=== PATIENT | male | born 1965 | race Hispanic/Latino ===

== ENCOUNTER 2016-08-22 02:07 | Inpatient (IN) | payer MEDICAID ==
--- NOTE | 2016-08-22 02:28 | C.PDOC ---
History Of Present Illness 50 y/o male presents to ED via transfer from [facility] for psych admission. Patient accepted for admission by Dr. Hoyos. Denies any acute complaints on arrival. Chief Complaint (Nursing): Medical Clearance History Per: Patient History/Exam Limitations: no limitations Current Symptoms Are (Timing): Still Present Reports Recently: Treated By A Physician Recent travel outside of the [place]: No Past Medical History Reviewed: Historical Data, Nursing Documentation, Vital Signs Vital Signs: Last Vital Signs Temp 97.7 F 08/22/16 02:12 Pulse 57 L 08/22/16 02:12 Resp 16 08/22/16 02:12 BP 145/91 H 08/22/16 02:12 Pulse Ox 98 08/22/16 02:12 - Medical History PMH: Depression Family History: States: Unknown Family Hx Review Of Systems Except As Marked, All Systems Reviewed And Found Negative. Constitutional: Negative for: Fever, Chills Respiratory: Negative for: Cough, Shortness of Breath Gastrointestinal: Negative for: Vomiting Skin: Positive for: Other (healing scar right sided scalp). Negative for: Rash Neurological: Negative for: Headache, Dizziness Psych: Positive for: Depression Physical Exam - Physical Exam Appears: Non-toxic, No Acute Distress, Other (awake, alert, no acute distress) Skin: Normal Color, Warm, Dry Head: Normacephalic, Other (presence of operative scar right side of the head) Eye(s): bilateral: Normal Inspection, PERRL, EOMI Chest: Symmetrical Cardiovascular: Rhythm Regular, No Murmur Respiratory: Normal Breath Sounds, No Rales, No Rhonchi, No Wheezing Gastrointestinal/Abdominal: Soft, No Tenderness Back: Normal Inspection Extremity: Normal ROM, Capillary Refill (< 2 sec. ) Neurological/Psych: Oriented x3, Other (no focal deficits) Disposition Discussed With : Marguerite Hoyos Doctor Will See Patient In The: Hospital Counseled Patient/Family Regarding: Diagnosis - Disposition Disposition: HOSPITALIZED Disposition Time: 02:33 Condition: STABLE Instructions: Gastritis (ED) - Clinical Impression Clinical Impression: Major depressive disorder, Alcohol use disorder - Scribe Statement The provider has reviewed the documentation as recorded by the Kvng Arevalo Provider Attestation: Provider Scribe Attestation: All medical record entries made by the Natalieibmayra were at my direction and personally dictated by me. I have reviewed the chart and agree that the record accurately reflects my personal performance of the history, physical exam, medical decision making, and the department course for this patient. I have also personally directed, reviewed, and agree with the discharge instructions and disposition.
[2016-08-22 02:38] VITALS: O2SAT 98
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
[2016-08-22] MEDS: Aritificial Tears (15ml) OU PRN (18:28)
--- NOTE | 2016-08-23 09:46 | PCM.PYCHPN ---
Psychiatric Progress Note - Psychiatric Progress Note Patient seen today, length of contact: 15 min Patient Chief Complaint: I am depressed and suicidal Problems Identified/Issues Discussed: Patient seen and evaluated, chart reviewed and discussed with the nurse. Patient still reports depressed mood and remained isolated, withdrawn and confined. He denies any withdrawal symptoms, but c/o anxiety and irritability. He denies any auditory or visual hallucinations. He is taking medications and denies any side effects. Supportive therapy and psychoeducation were given. Medication Change: Yes (Increase zoloft) Medical Record Reviewed: Yes Mental Status Examination - Cognitive Function Orientation: Person, Place, Situation, Time Memory: Intact Attention: WNL Concentration: Poor Association: WNL Fund of Knowledge: Poor - Mood Mood: Depressed, Anxious - Affect Affect: Constricted, Depressed - Formal Thought Process Formal Thought Process: No Impairment - Suicidal Ideation Suicidal Ideation: No - Homicidal Ideation Homicidal Ideation: No Goal/Treatment Plan - Goal/Treatment Plan Need for Continued Stay: Discharge may exacerbated symptoms, Severe functional impairment Progress Toward Problem(s) and Goals/Treatment Plan: Major depressive disorder recurrent severe without psychotic features CBT Psychoeducation Supportive therapy, individual therapy Zoloft 100 mg PO Daily Trazodone 50 mg PO Q HS Alcohol use disorder severe CBT & Psychoeducation Supportive therapy, individual therapy Use [place] for abstinence Alcohol withdrawal uncomplicated CBT & Psychoeducation Ativan 1 mg when necessary - Smoking Cessation Smoking Cessation Initiated: No
[2016-08-23] MEDS: Aritificial Tears (15ml) OU PRN (14:17)
--- NOTE | 2016-08-24 10:05 | PCM.PYCHPN ---
Psychiatric Progress Note - Psychiatric Progress Note Patient seen today, length of contact: 15 min Patient Chief Complaint: I am Feeling better Problems Identified/Issues Discussed: Pt. states that he is feeling improved since admission, however he is stressed by his newfound homelessness. Pt. reports improvement in his depression and irritability. He is hopeful for discharge to a rehab program. he has started coming out of his room and started attending groups and meetings. His taking medication and denied any side effects Medication Change: No Medical Record Reviewed: Yes Mental Status Examination - Cognitive Function Orientation: Person, Place, Situation, Time Memory: Intact Attention: WNL Concentration: WNL Association: WNL Fund of Knowledge: Poor - Mood Mood: Anxious - Affect Affect: Constricted, Depressed - Formal Thought Process Formal Thought Process: No Impairment - Suicidal Ideation Suicidal Ideation: No - Homicidal Ideation Homicidal Ideation: No Goal/Treatment Plan - Goal/Treatment Plan Need for Continued Stay: Discharge may exacerbated symptoms, Severe functional impairment Progress Toward Problem(s) and Goals/Treatment Plan: Major depressive disorder recurrent severe without psychotic features CBT Psychoeducation Supportive therapy, individual therapy Start Zoloft 50 mg PO Daily Start Trazodone 50 mg PO Q HS Alcohol use disorder severe CBT & Psychoeducation Supportive therapy, individual therapy Use [place] for abstinence Alcohol withdrawal uncomplicated CBT & Psychoeducation Ativan 1 mg when necessary - Smoking Cessation Smoking Cessation Initiated: No
[2016-08-24] MEDS: Divalproex 250 mg DR Tab PO SCH ×2 (11:30→18:06)
[2016-08-25] MEDS: Divalproex 250 mg DR Tab PO SCH ×2 (09:31→17:12)
--- NOTE | 2016-08-25 13:41 | PCM.PYCHPN ---
Psychiatric Progress Note - Psychiatric Progress Note Patient seen today, length of contact: 15 min Patient Chief Complaint: I am feeling very anxious Problems Identified/Issues Discussed: Pt. seen and evaluated and discussed with the nurse. Pt states that he is feeling better, but remained isolated, and irritable. He is stressed out by his newfound homelessness. Pt. is hopeful for discharge to a rehab program. He is taking medications and denies any side effects. Supportive therapy was given. Medication Change: No Medical Record Reviewed: Yes Mental Status Examination - Cognitive Function Orientation: Person, Place, Situation, Time Memory: Intact Attention: WNL Concentration: Poor Association: WNL Fund of Knowledge: Poor - Mood Mood: Anxious - Affect Affect: Constricted, Depressed - Formal Thought Process Formal Thought Process: No Impairment - Suicidal Ideation Suicidal Ideation: No - Homicidal Ideation Homicidal Ideation: No Goal/Treatment Plan - Goal/Treatment Plan Need for Continued Stay: Discharge may exacerbated symptoms, Severe functional impairment Progress Toward Problem(s) and Goals/Treatment Plan: Major depressive disorder recurrent severe without psychotic features CBT Psychoeducation Supportive therapy, individual therapy Zoloft 100 mg PO Daily Trazodone 50 mg PO Q HS Depakote 250 mg PO BID Alcohol use disorder severe CBT & Psychoeducation Supportive therapy, individual therapy Use [place] for abstinence Alcohol withdrawal uncomplicated CBT & Psychoeducation Ativan 1 mg when necessary - Smoking Cessation Smoking Cessation Initiated: No
[2016-08-25 16:06] VITALS: PULSE 68
[2016-08-26 09:16] VITALS: BP 129/81; RESP 20; TEMP 97.9
[2016-08-26] MEDS: Divalproex 250 mg DR Tab PO SCH (10:08)
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
== END 2016-08-26 13:00 | disposition home or self-care (01) | DRG 750 ==
LOC: C.ER 02:07 → C.5E 02:32
PROVIDERS: ADMIT Psychiatry & Neurology Psychiatry; ATTEND Psychiatry & Neurology Psychiatry
PROC: HZ2ZZZZ Detoxification Services for Substance Abuse Treatment (ICD-10-PCS; principal; 2016-08-22)
PROC: HZ32ZZZ Individual Counseling for Substance Abuse Treatment, Cognitive-Behavioral (ICD-10-PCS; 2016-08-22)
PROC: HZ56ZZZ Individual Psychotherapy for Substance Abuse Treatment, Psychoeducation (ICD-10-PCS; 2016-08-22)
PROC: HZ59ZZZ Individual Psychotherapy for Substance Abuse Treatment, Supportive (ICD-10-PCS; 2016-08-22)
DX: F10.230 Alcohol dependence with withdrawal, uncomplicated (principal); F33.2 Major depressive disorder, recurrent severe without psychotic features; R45.851 Suicidal ideations; Z59.0 Homelessness; F41.9 Anxiety disorder, unspecified

== ENCOUNTER 2016-08-26 18:50 | Emergency (ER) | payer MEDICAID ==
[2016-08-26 19:01] VITALS: BP 131/81; PULSE 72; RESP 18; TEMP 98.3; O2SAT 97
--- NOTE | 2016-08-26 19:46 | C.PDOC ---
History Of Present Illness A 50 year old male presents to the emergency room seeking ETOH detox. Patient was discharged from [facility] earlier today and admits to drinking today. Patient denies any fever, chills, nausea, vomiting, diarrhea, or any other physical complaints at this time. Time Seen by Provider: 08/26/16 19:42 Chief Complaint (Nursing): Substance Abuse History Per: Patient History/Exam Limitations: no limitations Onset/Duration Of Symptoms: Hrs Current Symptoms Are (Timing): Still Present Suicide/Self Injury Attempted (Context): None Modifying Factor(s): Alcohol Recent travel outside of the [place]: No Past Medical History Reviewed: Historical Data, Nursing Documentation, Vital Signs Vital Signs: Last Vital Signs Temp 98.3 F 08/26/16 18:57 Pulse 72 08/26/16 18:57 Resp 18 08/26/16 18:57 BP 131/81 08/26/16 18:57 Pulse Ox 97 08/26/16 19:46 - Medical History PMH: Depression, Fractures (History of head surgery with metal plate placement "2-3 years ago" after "b) Denies: Chronic Kidney Disease Family History: States: Unknown Family Hx - Social History Hx Alcohol Use: Yes (vodka daily for years) Hx Substance Use: No - Immunization History Hx Tetanus Toxoid Vaccination: No Hx Influenza Vaccination: No Hx Pneumococcal Vaccination: No Review Of Systems Except As Marked, All Systems Reviewed And Found Negative. Constitutional: Positive for: Other (ETOH intoxication. Requesting detox bed.). Negative for: Fever, Chills Gastrointestinal: Negative for: Nausea, Vomiting, Diarrhea Physical Exam - Physical Exam Appears: No Acute Distress, Other (Awake, alert, oriented, and normal voice.) Skin: Normal Color, Warm, Dry Cardiovascular: Rhythm Regular Respiratory: Normal Breath Sounds, No Rales, No Rhonchi, No Wheezing Gastrointestinal/Abdominal: Soft, No Tenderness Extremity: Normal ROM, No Tenderness Neurological/Psych: Oriented x3, Normal Speech Gait: Steady ED Course And Treatment O2 Sat by Pulse Oximetry: 97 Medical Decision Making Medical Decision Making: seeking etoh detox d/c from [address] [place] [address] earlier today d/w [employer]- re-eval and detox deferred. Disposition Doctor Will See Patient In The: Office Counseled Patient/Family Regarding: Studies Performed, Diagnosis - Disposition Referrals: Alcoholics Anonymous [Outside] [facility] [Outside] [facility] [Outside] Disposition: HOME/ ROUTINE Disposition Time: 19:46 Condition: GOOD Additional Instructions: seek AA Seek other detox programs as able. Instructions: Abuse of Alcohol (ED) Print Language: TAJIK - Clinical Impression Clinical Impression: Alcohol use disorder - Scribe Statement The provider has reviewed the documentation as recorded by the Natalieibmayra Potter Provider Scribe Attestation: All medical record entries made by the Natalieibe were at my direction and personally dictated by me. I have reviewed the chart and agree that the record accurately reflects my personal performance of the history, physical exam, medical decision making, and the department course for this patient. I have also personally directed, reviewed, and agree with the discharge instructions and disposition.
== END 2016-08-26 20:40 | disposition home or self-care (01) ==
LOC: C.ER 18:50
DX: F10.10 Alcohol abuse, uncomplicated (principal); Y90.9 Presence of alcohol in blood, level not specified

== ENCOUNTER 2016-08-27 01:12 | Emergency (ER) | payer MEDICAID ==
--- NOTE | 2016-08-27 02:21 | C.PDOC ---
History Of Present Illness A 50 year old male presents to the emergency room with complaints of depression that occurred today. Patient reports that he has a history of depression and was discharged from the psychiatric floor today. Patient states that he was discharged too early and has nowhere to go. Patient was seen in the ED earlier today and was discharged. After being discharged, patient states that he took 5- 10 pills of his medications before returning to the ED. Patient denies any suicidal/homicidal ideation, fever, chills, headaches, dizziness, or any other complaints. Time Seen by Provider: 08/27/16 01:29 Chief Complaint (Nursing): Psychiatric Evaluation History Per: Patient History/Exam Limitations: no limitations Onset/Duration Of Symptoms: Hrs Current Symptoms Are (Timing): Still Present Suicide/Self Injury Attempted (Context): None Modifying Factor(s): None Severity: None Associated Symptoms: Depression. denies: Suicidal Thoughts, Suicidal Plan Involuntary Hold By: None Recent travel outside of the [place]: No Past Medical History Reviewed: Historical Data, Nursing Documentation, Vital Signs Vital Signs: Last Vital Signs Temp 97.8 F 08/27/16 05:21 Pulse 89 08/27/16 06:41 Resp 20 08/27/16 06:41 BP 111/68 08/27/16 06:41 Pulse Ox 96 08/27/16 06:44 - Medical History PMH: Depression, Fractures (History of head surgery with metal plate placement "2-3 years ago" after "b) Denies: Chronic Kidney Disease Family History: States: Unknown Family Hx - Social History Hx Alcohol Use: Yes (vodka daily for years) Hx Substance Use: No - Immunization History Hx Tetanus Toxoid Vaccination: No Hx Influenza Vaccination: No Hx Pneumococcal Vaccination: No Review Of Systems Except As Marked, All Systems Reviewed And Found Negative. Constitutional: Negative for: Fever, Chills Neurological: Negative for: Headache, Dizziness Psych: Positive for: Depression. Negative for: Suicidal ideation Physical Exam - Physical Exam Appears: Non-toxic, No Acute Distress, Other (Flat affect) Skin: Normal Color, Warm, Dry, No Rash Head: Atraumatic, Normacephalic Eye(s): bilateral: Normal Inspection, PERRL, EOMI Oral Mucosa: Moist Neck: Normal ROM, Supple Cardiovascular: Rhythm Regular, No Friction Rub, No Murmur Respiratory: Normal Breath Sounds, No Rales, No Rhonchi, No Wheezing Gastrointestinal/Abdominal: Soft, No Tenderness, No Guarding, No Rebound Back: No CVA Tenderness, No Vertebral Tenderness Extremity: Normal ROM, No Tenderness Neurological/Psych: Oriented x3, Normal Speech, Normal Cognition, Normal Motor Gait: Steady ED Course And Treatment - Laboratory Results Result Diagrams: 08/27/16 02:40 08/27/16 02:40 O2 Sat by Pulse Oximetry: 96 (on RA) Pulse Ox Interpretation: Normal Medical Decision Making Medical Decision Making: Impression: A 50 year old male with depression and nowhere to go. Flat affect noted on exam. Plan: -- Labs Old records reviewed, the patient was discharged from the psych floor earlier today. Shortly after discharge the patient was seen in the ED, evaluated and was discharged home. According to patient had spilled all of his Sertraline on the ground and it was thrown away. Progress Notes: Nurse reviewed pills bottles. The depakote bottle is missing 5 pills and the Sertaline is empty as all the other pills fell on the floor. Yosi BAUTISTA, discussed the case with poison control, who states to order labs, EKG, and monitor the patient. On re-exam, the patient remains stable and resting comfortably. Ambulatory in the ED with steady gait. Lungs are CTA, heart is RRR, abdomen is soft, non- tender and tolerating Po well. Follow up with the medical doctor within 1-2 days. Return if worsened. Disposition - Disposition Referrals: [facility] [Outside] Disposition: HOME/ ROUTINE Disposition Time: 06:44 Condition: GOOD Additional Instructions: Follow up with the [facility] outpatient psych services as scheduled. Return if worsened. Instructions: Depression (GEN) - Clinical Impression Clinical Impression: Major depression, Alcohol use disorder - Scribe Statement The provider has reviewed the documentation as recorded by the Kvng Potter Provider Scribe Attestation: All medical record entries made by the Kvng were at my direction and personally dictated by me. I have reviewed the chart and agree that the record accurately reflects my personal performance of the history, physical exam, medical decision making, and the department course for this patient. I have also personally directed, reviewed, and agree with the discharge instructions and disposition.
[2016-08-27 02:46] LABS: BASO # 0.1 K/uL (0.0-0.2); BASO % 0.9 % (0.0-2.0); EOS # 0.2 K/uL (0.0-0.7); EOS % 2.8 % (0.0-4.0); LYMPH # 1.4 K/uL (1.0-4.3); MEAN CELL VOLUME 64.2 fL (80.0-94.0); MEAN CORPUSCULAR HEMOGLOBIN 19.9 pg (27.0-31.0); MEAN PLATELET VOLUME 10.4 fL (7.2-11.7); MONO # 0.8 K/uL (0.0-0.8); MONO % 10.4 % (0.0-10.0); RED CELL DISTRIBUTION WIDTH 16.6 % (11.5-14.5); WHITE BLOOD COUNT 7.6 K/uL (4.8-10.8)
[2016-08-27 02:52] LABS: CHLORIDE 101 mmol/L (98-107)
[2016-08-27 02:53] LABS: SODIUM 142 mmol/L (132-148)
[2016-08-27 02:54] LABS: POTASSIUM 4.5 mmol/L (3.6-5.2)
[2016-08-27 02:56] LABS: ALB/GLOB RATIO 1.2 (1.0-2.1); ALKALINE PHOSPHATASE 239 U/L (38-126); ALT/SGPT 167 U/L (21-72); AST/SGOT 184 U/L (17-59); BILIRUBIN,TOTAL 1.2 mg/dL (0.2-1.3); BLOOD UREA NITROGEN 25 mg/dL (9-20); CARBON DIOXIDE 25 mmol/L (22-30); GFR AFRICAN-AMERICAN > 60; TOTAL PROTEIN 8.1 g/dL (6.3-8.3)
[2016-08-27 02:57] LABS: ALCOHOL SERUM 110 mg/dl (0-10); CALCIUM 8.5 mg/dl (8.6-10.4); GLUCOSE,RANDOM 81 mg/dL (75-110)
[2016-08-27 04:26] LABS: RBC URINE < 1 /hpf (0-3); URINE BACTERIA RARE (<OCC); URINE BILIRUBIN NEGATIVE (NEGATIVE); URINE BLOOD NEGATIVE (NEGATIVE); URINE COLOR Amber (YELLOW); URINE GLUCOSE (UA) NORMAL (Normal); URINE KETONE TRACE mg/dL (NEGATIVE); URINE LEUKOCYTE ESTERASE NEG Leu/uL (Negative); URINE PROTEIN NEGATIVE (NEGATIVE); WBC URINE 1 /hpf (0-5)
[2016-08-27 05:24] VITALS: RESP 20; TEMP 97.8
[2016-08-27 06:38] VITALS: O2SAT 96
[2016-08-27 06:42] VITALS: BP 111/68; PULSE 89
--- NOTE | 2016-09-01 13:31 | CARD ---
APPROVED REPORT EKG Measurement Heart [id number] <Conclusion> Sinus bradycardia Otherwise normal ECG
== END 2016-08-27 07:07 | disposition home or self-care (01) ==
LOC: C.ER 01:12
DX: F32.9 Major depressive disorder, single episode, unspecified (principal); F10.10 Alcohol abuse, uncomplicated; Y90.5 Blood alcohol level of 100-119 mg/100 ml